=== PATIENT | female | born 1985 | race American Indian/Alaskan Native ===

== ENCOUNTER 2019-08-02 06:34 | Emergency (ER) | payer SELFPAY ==
[2019-08-02 06:54] VITALS: BP 140/103
== END 2019-08-02 08:40 | disposition left against medical advice (07) ==
LOC: ED 06:34
DX: R21 Rash and other nonspecific skin eruption (principal); Z53.21 Procedure and treatment not carried out due to patient leaving prior to being seen by health care provider